=== PATIENT | female | born 2000 | race Hispanic/Latino ===

== ENCOUNTER 2022-08-28 00:03 | Day surgery (SDC) | payer MEDICARE, MEDICAID ==
[2022-08-28 00:30] VITALS: BMI 29.0
[2022-08-28] MEDS ORDERED: hydrALAZINE 20 MG/ML VIAL SLOW IVP PRN (02:23)
[2022-08-28] MEDS ORDERED: Acetaminophen 325 MG TAB PO PRN (02:51)
[2022-08-28] MEDS ORDERED: hydrOXYzine 25 MG TAB PO PRN (02:52)
[2022-08-28] MEDS ORDERED: Lactated Ringer's 1,000 ML IV SCH ×2 (03:15)
[2022-08-28 03:31] LABS: ALT (SGPT) Less than 6 U/L (8-55); AST (SGOT) 9 U/L (5-34); Albumin 3.2 g/dL (3.5-5.0); Alkaline Phosphatase 92 U/L (40-110); Anion Gap 16 mmol/L (10-20); BUN (Urea Nitrogen) 9 mg/dL (7.0-18.7); Bilirubin, Total 0.2 mg/dL (0.2-1.2); Calc. Creatinine Clearance 181 mL/min (70-130); Calcium 8.9 mg/dL (7.8-10.44); Carbon Dioxide 20 mmol/L (22-29); Chloride 107 mmol/L (98-107); Estimated GFR 129; Globulin 3.2 g/dL (2.4-3.5); Glucose 96 mg/dL (70-105); Potassium 3.5 mmol/L (3.5-5.1); Protein, Total 6.4 g/dL (6.0-8.3); Sodium 139 mmol/L (136-145)
[2022-08-28 03:41] LABS: #Eosinphils 0.1 10x3/uL (0.0-0.5); #Monocytes 0.5 10x3/uL (0.0-1.1); #Neutrophils 9.3 10x3/uL (1.5-8.4); %Basophils 0.3 % (0.0-2.0); %Eosinophils 0.5 % (0.0-6.0); %Lymphocytes 13.5 % (18.0-47.0); %Monocytes 4.7 % (0.0-10.0); %Neutrophils 80.5 % (40.0-75.0); Hemoglobin 10.7 g/dL (12.0-15.5); Mean Corpuscular HGB CONC 35.1 g/dL (32.0-36.0); Mean Corpuscular Hemoglobin 30.3 pg (27.0-33.0); Mean Corpuscular Volume 86.4 fl (81.6-98.3); Mean Platelet Volume 11.6 fl (7.4-10.4); Platelet Count 237 10x3/uL (150-450); RBC Distribution Width 12.2 % (11.5-14.5); Red Blood Cell (RBC) Count 3.53 10x6/uL (3.90-5.03); White Blood Cell (WBC) Count 11.5 10x3/uL (3.5-10.5)
[2022-08-28 03:48] LABS: HBSAg Index 0.16 S/CO (0-0.99); HIV (1/2) Antibody/Antigen Non-Reactive (NonReactive); Hep B Surf Ag Non-Reactive S/CO (NonReactive)
[2022-08-28 03:49] LABS: Syphilis Antibody Nonreactive (Nonreactive); Syphilis Antibody Index 0.04 S/CO (<1.00 Non-Reactive)
[2022-08-28 05:18] LABS: Bilirubin Neg (Negative); Blood, Urine Negative (Negative); Clarity Sl. Cloudy (Clear); Glucose, Urine (Dipstick) Normal (Negative); Ketone, Urine Negative (Negative); Leukocyte 100 (Negative); Nitrite Negative (Negative); Protein, Urine (Dipstick) 15 mg/dl (Neg-Trace); Specific Gravity, Urine 1.015 (1.005-1.030); Urobilinogen Normal mg/dL (Less than 2)
[2022-08-28 05:25] LABS: Amphetamine Not Detected (NotDetected); Barbiturates Screen Not Detected (NotDetected); Benzodiazepine Screen Not Detected (NotDetected); Cocaine Metabolite Screen Not Detected (NotDetected); Methadone Not Detected (NotDetected); Methamphetamine Not Detected (NotDetected); Opiate Screen Not Detected (NotDetected); Oxycodone Screen Not Detected (NotDetected); Phencyclidine (PCP) Not Detected (NotDetected); THC/Cannabinoid Screen Not Detected (NotDetected); Tricyclic Screen Not Detected (NotDetected)
[2022-08-28 05:36] LABS: RBC/HPF 0-3 HPF (0-3); Squamous Epithelial 0-3 HPF (0-3)
[2022-08-28 05:37] LABS: Bacteria/HPF 1+ HPF (None Seen)
[2022-08-28 05:38] LABS: Urine Culture Reflex Yes Yes
[2022-08-28] MEDS ORDERED: Fosfomycin 3 GM/Packet PO SCH (06:45)
[2022-08-28] MEDS ORDERED: Famotidine 20 MG TAB PO SCH (09:00)
[2022-08-28 21:20] LABS: Chlamydia by PCR Not Detected (NotDetected); GC by PCR Not Detected (NotDetected)
== END 2022-08-28 07:10 | disposition home or self-care (01) ==
LOC: CSHLD/OP 00:03
PROVIDERS: ATTEND Student in an Organized Health Care Education/Training Program
DX: O60.03 Preterm labor without delivery, third trimester (principal); Z3A.34 34 weeks gestation of pregnancy; O23.43 Unspecified infection of urinary tract in pregnancy, third trimester; N39.0 Urinary tract infection, site not specified; O99.343 Other mental disorders complicating pregnancy, third trimester; F79 Unspecified intellectual disabilities; F31.9 Bipolar disorder, unspecified; O99.013 Anemia complicating pregnancy, third trimester; D64.9 Anemia, unspecified; O99.213 Obesity complicating pregnancy, third trimester; Z79.899 Other long term (current) drug therapy; Z88.1 Allergy status to other antibiotic agents; Z98.890 Other specified postprocedural states
CPT/HCPCS: 76815; 76819; 80053; 80306; 81001; 85025; 86780; 86850; 86900; 86901; 87086; 87340; 87389; 87480; 87491; 87510; 87591; 87660; 87661; 96360; 99285

== ENCOUNTER 2022-09-06 17:45 | Day surgery (SDC) | payer MEDICARE, MEDICAID ==
[2022-09-06 18:27] VITALS: BMI 28.5
[2022-09-06] MEDS ORDERED: hydrALAZINE 20 MG/ML VIAL SLOW IVP PRN (19:04)
== END 2022-09-06 21:34 | disposition home or self-care (01) ==
LOC: CSHLD/OP 17:45
PROVIDERS: ATTEND Emergency Medicine
DX: O60.03 Preterm labor without delivery, third trimester (principal); Z3A.35 35 weeks gestation of pregnancy; O23.43 Unspecified infection of urinary tract in pregnancy, third trimester; N39.0 Urinary tract infection, site not specified; O99.343 Other mental disorders complicating pregnancy, third trimester; F79 Unspecified intellectual disabilities; F31.9 Bipolar disorder, unspecified; O99.013 Anemia complicating pregnancy, third trimester; D64.9 Anemia, unspecified; O99.213 Obesity complicating pregnancy, third trimester; Z79.899 Other long term (current) drug therapy; Z88.1 Allergy status to other antibiotic agents
CPT/HCPCS: 76819; 87081; 99283

== ENCOUNTER 2022-09-12 13:19 | Day surgery (SDC) | payer MEDICARE, MEDICAID ==
[2022-09-12] MEDS ORDERED: hydrALAZINE 20 MG/ML VIAL SLOW IVP PRN (15:30)
[2022-09-12 15:42] LABS: Fetal Membranes Rupture No Membranes Rupture (No Rupture)
== END 2022-09-12 17:00 | disposition home health service (06) ==
LOC: CSHLD/OP 13:19
PROVIDERS: ATTEND Family Medicine
DX: O26.893 Other specified pregnancy related conditions, third trimester (principal); N89.8 Other specified noninflammatory disorders of vagina; O99.213 Obesity complicating pregnancy, third trimester; E66.09 Other obesity due to excess calories; Z3A.36 36 weeks gestation of pregnancy; Z79.899 Other long term (current) drug therapy; Z88.1 Allergy status to other antibiotic agents
CPT/HCPCS: 84112; 87480; 87510; 87660; 99283

== ENCOUNTER 2022-09-16 13:23 | Day surgery (SDC) | payer MEDICARE, MEDICAID ==
[2022-09-16 14:12] VITALS: BMI 32.3
[2022-09-16] MEDS ORDERED: hydrALAZINE 20 MG/ML VIAL SLOW IVP PRN (15:23)
== END 2022-09-16 16:38 | disposition home or self-care (01) ==
LOC: CSHLD/OP 13:23
PROVIDERS: ATTEND Family Medicine
DX: O26.853 Spotting complicating pregnancy, third trimester (principal); O99.213 Obesity complicating pregnancy, third trimester; E66.8 Other obesity; O26.893 Other specified pregnancy related conditions, third trimester; R10.9 Unspecified abdominal pain; Z3A.37 37 weeks gestation of pregnancy; Z88.1 Allergy status to other antibiotic agents

== ENCOUNTER 2022-09-17 10:53 | Inpatient (IN) | payer MEDICARE, MEDICAID ==
[2022-09-17 11:23] VITALS: BMI 37.1
[2022-09-17] MEDS ORDERED: hydrALAZINE 20 MG/ML VIAL SLOW IVP PRN ×3 (11:47→17:11)
[2022-09-17] MEDS ORDERED: Lidocaine 1% (PF) 30 ML VIAL SC PRN (11:54)
[2022-09-17] MEDS ORDERED: Ibuprofen 800 MG TAB PO PRN (11:54)
[2022-09-17] MEDS ORDERED: NS w/ Oxytocin 30 units 500 ML IV SCH ×2 (12:00)
[2022-09-17] MEDS ORDERED: Promethazine HCl 25 MG/ML VIAL IM PRN ×2 (12:04→13:01)
[2022-09-17] MEDS ORDERED: Ondansetron PF 4 MG/2 ML Vial IVP PRN ×2 (12:04→13:01)
[2022-09-17] MEDS ORDERED: Fentanyl 2 mcg/Bup 0.1% Cadd 100 ML ONE (12:05)
[2022-09-17 12:29] LABS: Hemoglobin 11.6 g/dL (12.0-15.5); Mean Corpuscular HGB CONC 34.2 g/dL (32.0-36.0); Mean Corpuscular Hemoglobin 30.2 pg (27.0-33.0); Mean Corpuscular Volume 88.3 fl (81.6-98.3); Platelet Count 245 10x3/uL (150-450); RBC Distribution Width 12.8 % (11.5-14.5); Red Blood Cell (RBC) Count 3.84 10x6/uL (3.90-5.03); White Blood Cell (WBC) Count 13.8 10x3/uL (3.5-10.5)
[2022-09-17] MEDS ORDERED: Acetaminophen 325 MG TAB PO PRN (13:01)
[2022-09-17] MEDS ORDERED: Moisturizing Cream (Eucerin) 113 GM JAR TOP PRN (13:01)
[2022-09-17] MEDS ORDERED: ePHEDrine Sulfate 50 MG/10 ML VIAL SLOW IVP PRN (13:01)
[2022-09-17] MEDS ORDERED: Lactated Ringer's 500 ML IV PRN (13:01)
[2022-09-17] MEDS ORDERED: diphenhydrAMINE 50 MG/ML VIAL IVP PRN (13:01)
[2022-09-17] MEDS ORDERED: Naloxone HCl 0.4 mg/ml Vial IVP PRN ×2 (13:01)
[2022-09-17] MEDS ORDERED: Fentanyl 2 mcg/Bupivacaine 0.1% Cassette 100 ML EPIDURAL SCH (13:15)
[2022-09-17] MEDS ORDERED: Communication Order-Pharmacy FS SCH (13:15)
[2022-09-17 13:38] LABS: Syphilis Antibody Nonreactive (Nonreactive); Syphilis Antibody Index 0.05 S/CO (<1.00 Non-Reactive)
[2022-09-17 13:39] LABS: HBSAg Index 0.21 S/CO (0-0.99); Hep B Surf Ag Non-Reactive S/CO (NonReactive)
[2022-09-17] MEDS ORDERED: Carboprost 250 MCG/ML AMP IM PRN (14:55)
[2022-09-17] MEDS ORDERED: Misoprostol 200 MCG TAB PR PRN (14:55)
[2022-09-17] MEDS ORDERED: Methylergonovine 0.2 MG/ML VIAL IM PRN (14:55)
[2022-09-17] MEDS ORDERED: Lactated Ringer's 1,000 ML IV SCH (15:00)
[2022-09-17] MEDS ORDERED: Boostrix 0.5 ML (Tdap) VIAL (>/=7 yrs of age) IM ONE (17:11)
[2022-09-17] MEDS ORDERED: Lanolin Ointment 7 GM TUBE TOP PRN (17:11)
[2022-09-17] MEDS ORDERED: Milk Of Magnesia 30 ML UDCUP PO PRN (17:11)
[2022-09-17] MEDS ORDERED: Bisacodyl 10 MG SUPP PR PRN (17:11)
[2022-09-17] MEDS: Ferrous Sulfate 325 MG TAB PO SCH (18:04)
[2022-09-17] MEDS: Ibuprofen 800 MG TAB PO SCH (22:24)
[2022-09-17] MEDS: Docusate 100 MG CAP PO SCH (22:24)
[2022-09-18] MEDS: Ibuprofen 800 MG TAB PO SCH ×2 (06:14→15:26)
[2022-09-18] MEDS ORDERED: Prenatal Vitamin 1 TAB PO SCH (09:00)
[2022-09-18] MEDS: Ferrous Sulfate 325 MG TAB PO SCH ×2 (09:16→17:41)
[2022-09-18] MEDS: Docusate 100 MG CAP PO SCH (09:20)
[2022-09-18 17:31] VITALS: BP 144/88; TEMP 98.1
== END 2022-09-18 18:30 | disposition home or self-care (01) | DRG 806 ==
LOC: CSHLD 10:53 → CSHPP 17:36
PROVIDERS: ADMIT Family Medicine; ATTEND Family Medicine
PROC: 10E0XZZ Delivery of Products of Conception, External Approach (ICD-10-PCS; principal; 2022-09-17)
PROC: 10907ZC Drainage of Amniotic Fluid, Therapeutic from Products of Conception, Via Natural or Artificial Opening (ICD-10-PCS; 2022-09-17)
PROC: 10H07YZ Insertion of Other Device into Products of Conception, Via Natural or Artificial Opening (ICD-10-PCS; 2022-09-17)
PROC: 0HQ9XZZ Repair Perineum Skin, External Approach (ICD-10-PCS; 2022-09-17)
DX: O99.344 Other mental disorders complicating childbirth (principal); O23.593 Infection of other part of genital tract in pregnancy, third trimester; Z37.0 Single live birth; Z88.8 Allergy status to other drugs, medicaments and biological substances; Z3A.37 37 weeks gestation of pregnancy; F31.9 Bipolar disorder, unspecified; F79 Unspecified intellectual disabilities; N76.0 Acute vaginitis; Z79.899 Other long term (current) drug therapy; O70.0 First degree perineal laceration during delivery
CPT/HCPCS: 51702; 85027; 86780; 86850; 86900; 86901; 87340; 99282; 99285

== ENCOUNTER 2025-09-21 19:11 | Emergency (ER) | payer OTHER, MEDICAID | END 2025-09-21 21:51 | disposition home or self-care (01) | LOC: CSHERS 19:11 | DX: J06.9 Acute upper respiratory infection, unspecified (principal); R21 Rash and other nonspecific skin eruption | CPT/HCPCS: 71046; 87428; 93005 ==